=== PATIENT | male | born 1970 | race Caucasian/White ===

== ENCOUNTER 2022-04-03 09:26 | Emergency (ER) | payer MEDICAID | END 2022-04-03 10:17 | disposition home or self-care (01) | LOC: JD.ED 09:26 | DX: F10.920 Alcohol use, unspecified with intoxication, uncomplicated (principal); I10 Essential (primary) hypertension; Z72.0 Tobacco use; Z88.0 Allergy status to penicillin | CPT/HCPCS: 99283 ==